=== PATIENT | male | born 1950 | race African-American/Black ===

== ENCOUNTER → 2019-06-16 | Outpatient (CLI) | payer MEDICAID, OTHER ==
[~2019-06-16] MED LIST: GADOTERATE 7.5 MMOL/15ML VIAL. IVP ONE
[2019-06-16 15:44] LABS: CREATININE 1.4 mg/dL (0.7-1.3)
--- NOTE | 2019-06-17 08:55 | RAD ---
EXAM: MRI pelvis with and without contrast. HISTORY: Cryptorchidism. TECHNIQUE: MRI of the pelvis was performed before and after the intravenous administration of 15 mL Dotarem. COMPARISON: None. FINDINGS: A mass in the right inguinal region is mostly cystic. It measures 4.6 x 3.6 x 3.2 cm and there is a thin rim of enhancement. It produces a visible surface lump. There are no enlarged inguinal lymph nodes bilaterally. No mass is appreciated more superiorly in the right hemipelvis. One testis is noted within the scrotum. It measures 5.8 x 5.1 x 3.9 centimeters. There is a moderate hydrocele. No testicular mass is appreciated. The spermatic cord associated with this testis drains to the right. No spermatic cord is appreciated on the left. The superior margin of the [id number] is just superior to the aortic bifurcation, but gonadal vessels are not appreciated on the left. No left hemipelvic mass is identified. 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 A small cystic focus is noted within the right femoral neck, likely benign. Small hypointense foci within the marrow in the pelvis likely represent heterogeneous red marrow. IMPRESSION: 1. A single intrascrotal testis is prominent in size at 5.8 x 5.1 cm. Its vasculature comes from the right. 2. A second 4.6 cm right inguinal mass appears mostly cystic. 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 Cystic dysplasia or a cystic mass cannot be excluded. Ongoing management is recommended. 3. No left testicle is identified within the inguinal region or pelvis. No gonadal vasculature is seen on the left. CT of the abdomen/pelvis with contrast could further exclude a small cryptorchid left testis if there is persistent concern. 4. Moderate hydrocele. Electronically signed by: Jeferson Guerrero MD (06/17/2019 8:52 AM) [facility]
== END | disposition home or self-care (01) ==
LOC: MRI 15:17
PROVIDERS: ATTEND Urology
DX: N43.3 Hydrocele, unspecified (principal); Q53.111 Unilateral intraabdominal testis; R19.03 Right lower quadrant abdominal swelling, mass and lump
CPT/HCPCS: 36415; 72197; 82565; A9575